=== PATIENT | male | born 1940 | race Caucasian/White ===

== ENCOUNTER 2020-02-01 20:17 | Observation (INO) ==
[2020-02-01 21:21] LABS: Basophils % 0.4 %; Eosinophils # 0.3 K/mcL (0.0-0.6); Eosinophils % 3.7 %; Hematocrit 27.7 % (37.5-50.1); Hemoglobin 9.1 g/dL (12.9-16.9); Immature Granulocytes % 0.6 % (0-4); Lymphocytes # 1.5 K/mcL (0.6-4.6); Lymphocytes % 19.5 %; Mean Corpuscular HGB Conc 32.9 g/dL (31.6-35.5); Mean Corpuscular Hemoglobin 30.4 pg (28.0-33.3); Mean Corpuscular Volume 92.6 fL (83.0-100.0); Mean Platelet Volume 10.3 fL (9.4-12.4); Monocytes # 0.7 K/mcL (0.0-1.3); Neutrophils # 5.2 K/mcL (1.6-8.9); Platelet Count 128 K/mcL (140-400); Red Blood Count 2.99 M/mcL (4.19-5.50); Red Cell Distribution Width 15.5 % (11.5-14.5); Segmented Neutrophils % 66.8 %; White Blood Count 7.9 K/mcL (4.3-11.1)
[2020-02-01 21:27] LABS: INR 1.4; Prothrombin Time 16.1 Seconds (9.4-12.1)
[2020-02-01 21:38] LABS: Calcium 9.3 mg/dL (8.6-10.3); Potassium 4.2 mEq/L (3.5-5.1)
[2020-02-01 23:12] LABS: Bilirubin,Urine Negative (Negative); Blood,Urine Negative (Negative); Clarity,Urine Clear (Clear); Color,Urine Yellow (Yellow); Glucose,Urine (UA) Normal (Normal); Ketones,Urine Negative (Negative); Leukocyte Esterase,Urine Negative (Negative); Nitrite,Urine Negative (Negative); Protein,Urine Negative (Neg-Trace); Urobilinogen,Urine Normal (Normal)
[2020-02-02] MEDS ORDERED: *HR* LORazepam 0.5 MG TABLET PO PRN (00:58)
[2020-02-02] MEDS ORDERED: Albuterol 2.5 MG/3 ML NEBULIZER IH PRN (00:58)
[2020-02-02] MEDS ORDERED: Naloxone 0.4 MG/ML INJ IVP PRN (00:58)
[2020-02-02 06:05] LABS: Basophils % 0.3 %; Eosinophils # 0.3 K/mcL (0.0-0.6); Eosinophils % 4.5 %; Hematocrit 25.9 % (37.5-50.1); Hemoglobin 8.6 g/dL (12.9-16.9); Immature Granulocytes % 0.7 % (0-4); Lymphocytes # 1.9 K/mcL (0.6-4.6); Lymphocytes % 26.1 %; Mean Corpuscular HGB Conc 33.2 g/dL (31.6-35.5); Mean Corpuscular Hemoglobin 30.7 pg (28.0-33.3); Mean Corpuscular Volume 92.5 fL (83.0-100.0); Mean Platelet Volume 11.2 fL (9.4-12.4); Monocytes # 0.8 K/mcL (0.0-1.3); Monocytes % 10.5 %; Neutrophils # 4.2 K/mcL (1.6-8.9); Platelet Count 130 K/mcL (140-400); Red Cell Distribution Width 15.4 % (11.5-14.5); Segmented Neutrophils % 57.9 %; White Blood Count 7.2 K/mcL (4.3-11.1)
[2020-02-02 06:23] LABS: BUN/Creatinine Ratio 16 (6-26); Blood Urea Nitrogen 20 mg/dL (8-23); Calcium 9.4 mg/dL (8.6-10.3); Carbon Dioxide 28 mEq/L (23-29); Chloride 104 mEq/L (98-107); Glucose 118 mg/dL (70-105); Osmolality,Calculated 292 (280-300); Potassium 3.6 mEq/L (3.5-5.1); Sodium 139 mEq/L (136-145); eGFR For African Americans > 60 (> 60); eGFR For Non-African Americans 57 (> 60)
[2020-02-02] MEDS: Budesonide/Formoterol 160/4.5 1 PUFF INH IH SCH ×2 (08:50→22:40)
[2020-02-02] MEDS ORDERED: EVOLOCUMAB SQ SCH (09:00)
[2020-02-02] MEDS: Carbidopa/Levodopa ER 50/200 TABLET PO SCH ×2 (10:20→22:38)
[2020-02-02] MEDS: amLODIPine 5 MG TABLET PO SCH ×2 (10:20→22:38)
[2020-02-02] MEDS: Cyanocobalamin (B-12) 1,000 MCG TABLET PO SCH (10:20)
[2020-02-02] MEDS: Aspirin Enteric Coated 81 MG Tablet PO SCH (10:20)
[2020-02-02] MEDS: QUEtiapine Fumarate 25 MG TABLET PO SCH (10:20)
[2020-02-02] MEDS: allopurinoL 300 MG TABLET PO SCH (10:21)
[2020-02-02] MEDS: [UNRECOGNIZED DRUG - OTHER] PO SCH (10:21)
[2020-02-02] MEDS: Fluticasone Propionate Nasal 50 MCG/SPRAY BOTTLE NS SCH (10:21)
[2020-02-02] MEDS: Furosemide 40 MG TABLET PO SCH ×2 (10:21→22:39)
[2020-02-02] MEDS: Ascorbic Acid 500 MG TABLET PO SCH (10:21)
[2020-02-02] MEDS: *HR* HYDROcodone/Acet 10/325 mg TABLET PO PRN ×2 (10:48→22:38)
[2020-02-02] MEDS ORDERED: D5% in Water 1,000 ML IVC PRN (17:08)
[2020-02-02] MEDS ORDERED: *HR* Dextrose 50 % in Water (Vial) 50 ML VIAL IVP PRN (17:08)
[2020-02-02] MEDS ORDERED: Dextrose Gel 15 GM/37.5 ML TUBE PO PRN ×2 (17:08)
[2020-02-02] MEDS: Insulin DETEMIR 100 UNIT/ML X5UNITS SQ SCH (22:37)
[2020-02-02] MEDS: Melatonin 3 MG TABLET PO SCH (22:37)
[2020-02-02] MEDS: QUEtiapine Fumarate 100 MG TABLET PO SCH (22:39)
[2020-02-02] MEDS: Insulin LISPRO 300 UNITS/3 ML VIAL SQ SCH (22:39)
[2020-02-03] MEDS: *HR* HYDROcodone/Acet 10/325 mg TABLET PO PRN ×2 (05:04→21:17)
[2020-02-03 06:03] LABS: Hematocrit 26.7 % (37.5-50.1); Hemoglobin 8.7 g/dL (12.9-16.9); Mean Corpuscular HGB Conc 32.6 g/dL (31.6-35.5); Mean Corpuscular Hemoglobin 30.5 pg (28.0-33.3); Mean Corpuscular Volume 93.7 fL (83.0-100.0); Mean Platelet Volume 11.5 fL (9.4-12.4); Platelet Count 135 K/mcL (140-400); Red Blood Count 2.85 M/mcL (4.19-5.50); Red Cell Distribution Width 15.8 % (11.5-14.5); White Blood Count 7.1 K/mcL (4.3-11.1)
[2020-02-03 06:46] LABS: Alanine Aminotransferase 2 Units/L (7-52); Albumin/Globulin Ratio 1.6 (1.1-2.2); Alkaline Phosphatase 55 Units/L (34-104); Aspartate Amino Transferase 14 Units/L (13-39); BUN/Creatinine Ratio 14 (6-26); Bilirubin,Total 0.4 mg/dL (0.3-1.0); Blood Urea Nitrogen 17 mg/dL (8-23); Calcium 9.4 mg/dL (8.6-10.3); Carbon Dioxide 26 mEq/L (23-29); Chloride 108 mEq/L (98-107); Globulin 2.5 g/dL (2.4-3.5); Glucose 116 mg/dL (70-105); Magnesium 2.1 mg/dL (1.6-2.6); Osmolality,Calculated 295 (280-300); Potassium 4.2 mEq/L (3.5-5.1); Sodium 141 mEq/L (136-145); Total Protein 6.5 g/dL (6.4-8.9); eGFR For African Americans > 60 (> 60); eGFR For Non-African Americans 57 (> 60)
[2020-02-03] MEDS: Insulin LISPRO 300 UNITS/3 ML VIAL SQ SCH ×4 (07:36→21:18)
[2020-02-03] MEDS: Furosemide 40 MG TABLET PO SCH ×2 (08:42→21:18)
[2020-02-03] MEDS: QUEtiapine Fumarate 25 MG TABLET PO SCH (08:42)
[2020-02-03] MEDS: Aspirin Enteric Coated 81 MG Tablet PO SCH (08:42)
[2020-02-03] MEDS: allopurinoL 300 MG TABLET PO SCH (08:42)
[2020-02-03] MEDS: Carbidopa/Levodopa ER 50/200 TABLET PO SCH ×2 (08:42→21:16)
[2020-02-03] MEDS: Ascorbic Acid 500 MG TABLET PO SCH (08:42)
[2020-02-03] MEDS: Cyanocobalamin (B-12) 1,000 MCG TABLET PO SCH (08:42)
[2020-02-03] MEDS: amLODIPine 5 MG TABLET PO SCH ×2 (08:43→21:16)
[2020-02-03] MEDS: [UNRECOGNIZED DRUG - OTHER] PO SCH (08:43)
[2020-02-03] MEDS: Budesonide/Formoterol 160/4.5 1 PUFF INH IH SCH ×2 (09:05→20:34)
[2020-02-03 12:14] LABS: % Iron Saturation 7 % (20-55); Iron 24 mcg/dL (65-175); Transferrin 230 mg/dL (203-362)
[2020-02-03 12:38] LABS: Folate 16.3 ng/mL (3.0-16.0)
[2020-02-03] MEDS: Fluticasone Propionate Nasal 50 MCG/SPRAY BOTTLE NS SCH (12:38)
[2020-02-03] MEDS ORDERED: Furosemide 40 MG in 0.9 % Sodium Chloride 50 ML IV SCH (21:00)
[2020-02-03] MEDS: QUEtiapine Fumarate 100 MG TABLET PO SCH (21:16)
[2020-02-03] MEDS: Melatonin 3 MG TABLET PO SCH (21:16)
[2020-02-03] MEDS: Insulin DETEMIR 100 UNIT/ML X5UNITS SQ SCH (21:18)
[2020-02-04] MEDS: *HR* HYDROcodone/Acet 10/325 mg TABLET PO PRN (06:11)
[2020-02-04] MEDS: Budesonide/Formoterol 160/4.5 1 PUFF INH IH SCH ×2 (09:53→20:26)
[2020-02-04] MEDS: Cyanocobalamin (B-12) 1,000 MCG TABLET PO SCH (11:46)
[2020-02-04] MEDS: Insulin LISPRO 300 UNITS/3 ML VIAL SQ SCH ×4 (11:46→21:26)
[2020-02-04] MEDS: Ascorbic Acid 500 MG TABLET PO SCH (11:46)
[2020-02-04] MEDS: amLODIPine 5 MG TABLET PO SCH ×2 (11:46→21:26)
[2020-02-04] MEDS: Carbidopa/Levodopa ER 50/200 TABLET PO SCH ×2 (11:46→21:27)
[2020-02-04] MEDS: allopurinoL 300 MG TABLET PO SCH (11:47)
[2020-02-04] MEDS: Furosemide 40 MG TABLET PO SCH ×2 (11:47→21:26)
[2020-02-04] MEDS: QUEtiapine Fumarate 25 MG TABLET PO SCH (11:47)
[2020-02-04] MEDS: [UNRECOGNIZED DRUG - OTHER] PO SCH (11:47)
[2020-02-04] MEDS: Fluticasone Propionate Nasal 50 MCG/SPRAY BOTTLE NS SCH (11:47)
[2020-02-04] MEDS: Aspirin Enteric Coated 81 MG Tablet PO SCH (11:47)
[2020-02-04] MEDS ORDERED: Ondansetron ODT 4 MG TAB.RAPDIS SL PRN (20:05)
[2020-02-04] MEDS: Melatonin 3 MG TABLET PO SCH (21:26)
[2020-02-04] MEDS: QUEtiapine Fumarate 100 MG TABLET PO SCH (21:27)
[2020-02-04] MEDS: Insulin DETEMIR 100 UNIT/ML X5UNITS SQ SCH (21:28)
[2020-02-05] MEDS: *HR* HYDROcodone/Acet 10/325 mg TABLET PO PRN (05:46)
[2020-02-05] MEDS ORDERED: *HR* Enoxaparin 40 MG/0.4 ML SYRINGE SQ SCH (06:00)
[2020-02-05 09:18] VITALS: BP 109/70
[2020-02-05] MEDS: Furosemide 40 MG TABLET PO SCH (09:19)
[2020-02-05] MEDS: Cyanocobalamin (B-12) 1,000 MCG TABLET PO SCH (09:21)
[2020-02-05] MEDS: Aspirin Enteric Coated 81 MG Tablet PO SCH (09:22)
[2020-02-05] MEDS: Carbidopa/Levodopa ER 50/200 TABLET PO SCH (09:22)
[2020-02-05] MEDS: Ascorbic Acid 500 MG TABLET PO SCH (09:22)
[2020-02-05] MEDS: QUEtiapine Fumarate 25 MG TABLET PO SCH (09:23)
[2020-02-05] MEDS: amLODIPine 5 MG TABLET PO SCH (09:23)
[2020-02-05] MEDS: allopurinoL 300 MG TABLET PO SCH (09:24)
[2020-02-05] MEDS: Insulin LISPRO 300 UNITS/3 ML VIAL SQ SCH (09:24)
[2020-02-05] MEDS: Fluticasone Propionate Nasal 50 MCG/SPRAY BOTTLE NS SCH (09:24)
[2020-02-05] MEDS: [UNRECOGNIZED DRUG - OTHER] PO SCH (09:25)
[2020-02-05] MEDS: Budesonide/Formoterol 160/4.5 1 PUFF INH IH SCH (09:55)
== END 2020-02-05 10:27 | disposition home health service (06) ==
LOC: INPGRE 20:17 → EMEROOGRE 20:17 → SUATTDRO 23:48 → INPGRE 02-02 00:51
PROVIDERS: ADMIT Family Medicine; ATTEND Family Medicine